=== PATIENT | male | born 1940 | race Caucasian/White ===

== ENCOUNTER → 2018-01-10 | Outpatient (CLI) | payer MEDICARE ==
[~2018-01-10] VITALS: Ht 172.7 cm; Wt 82.1 kg
[~2018-01-10] MED LIST: CETI10; CHLORHEXIDINE GLUCONATE 2 % 1 PACK (2 CLOTHS) TOPICAL PRN; CLOP75TA PO; LACTATED RINGER'S 1000 ML IV PRN; LIDOCAINE HCL 1% PF 5 ML SYRINGE OTHER ONE; LISI10TA3 PO; METOPROLOL TARTRATE 25 MG TAB PO PRN; PANT40TA3 PO; POVIDONE IODINE 5% (ANTISEPSIS KIT) 4 APPLICATIONS EACH NARE PRN; PROPOFOL 200 MG/20 ML AMP IV ONE; SIMV20TA PO; SODIUM CHLORID 0.9% 500 ML IV PRN; [UNRECOGNIZED DRUG - OTHER]
[2018-01-10 15:21] VITALS: BP 140/75; PULSE 56; RESP 20; TEMP 98.3; O2SAT 98
--- NOTE | 2018-01-10 15:22 | PD.PROCEDR ---
GI Procedure PROCEDURE PERFORMED EGD with biopsy followed by colonoscopy with snare polypectomy INDICATION FOR PROCEDURE Hemoccult-positive stool PROCEDURE: The procedure, risks and benefits were discussed with Patient/POA and informed consent was obtained. Anesthesia sedated Patient with Diprivan. Patient was placed in the left lateral decubitus position. EGD: The Pentax videoscope was introduced through the oropharynx and advanced to the second portion of the duodenum under direct visualization. Retroflexion was performed in the stomach. FINDINGS: The esophagus this was unremarkable and within normal limits except for a mild Schatzki ring at the GE junction The stomach there was a medium sized hiatal hernia the gastric mucosa appeared to be diffusely nodular specifically in the gastric body with very few gastric nodules/polypoid lesions the gastric body was biopsied from more than 1 area for further evaluation The duodenum this appeared to be unremarkable except for a sessile polyp noted in the descending duodenum of unclear significance this too was biopsied Colonoscopy: The Pentax videoscope was introduced through the rectum and advanced to cecum where the ileocecal valve and appendiceal orifice were identified. Retroflexion was performed in the rectum. Colonic prep was good FINDINGS: Colonic withdrawal time greater than 6 minutes. As the scope was slowly withdrawn colonic mucosa was carefully inspected the patient was noted to have 2 small sessile polyps in the proximal transverse colon both were excised using cold snare technique otherwise colonic examination was unremarkable throughout the patient had mild diverticulosis of the sigmoid region retroflexion in the rectum was unremarkable and so his rectal examination ESTIMATED BLOOD LOSS: None SPECIMENS REMOVED: Gastric, duodenal, colon biopsies COMPLICATIONS: None IMPRESSION: A mild Schatzki ring Mild to moderate hiatal hernia Mildly nodular gastric mucosa Medium-sized sessile polyp in the descending duodenum Colon polyps transverse colon Diverticulosis sigmoid colon PLAN: Await biopsies Follow-up in clinic in 3-4 weeks Continue with current management Colonoscopy in 5 years Consider endoscopic ultrasound with duodenal polyp resection based on biopsy results Felice Ulloa MD January 10, 2018 15:22
--- NOTE | 2018-01-11 07:20 | EKG ---
Date Performed: 01/10/2018 Time Performed: 11:07:40 PTAGE: 77 years EKG: Sinus rhythm MINIMAL ST DEPRESSION BORDERLINE ECG NO PREVIOUS TRACING DOCTOR: Haris Moreno Interpretating Date/Time 01/11/2018 07:17:41
== END ==
LOC: HEND 10:29
PROVIDERS: ATTEND Internal Medicine Gastroenterology
DX: D13.2 Benign neoplasm of duodenum (principal); K31.7 Polyp of stomach and duodenum; K29.50 Unspecified chronic gastritis without bleeding; K22.2 Esophageal obstruction; K44.9 Diaphragmatic hernia without obstruction or gangrene; D12.3 Benign neoplasm of transverse colon; K57.30 Diverticulosis of large intestine without perforation or abscess without bleeding; R19.5 Other fecal abnormalities; R94.31 Abnormal electrocardiogram [ECG] [EKG]
CPT/HCPCS: 88305; 88312; 93005